=== PATIENT | male | born 1985 | race African-American/Black ===

== ENCOUNTER 2024-01-23 12:30 | Emergency (ER) | payer SELFPAY ==
[2024-01-23 12:36] VITALS: BP 131/75; PULSE 88; RESP 14; TEMP 36.7; O2SAT 100
[2024-01-23 13:21] LABS: Strep Group A RT-PCR NOT DETECTED (Negative)
[2024-01-23 13:32] LABS: Influenza A QL RT-PCR Positive (Negative); Influenza B QL RT-PCR Negative (Negative); RSV RNA, RT-PCR Negative (Negative); SARS-CoV-2 RNA PCR Negative (Negative)
--- NOTE | 2024-01-23 13:42 | ED.URI ---
HPI - URI/Sore Throat General Chief Complaint: Upper Respiratory Infection Stated Complaint: chills, sore throat Time Seen by Provider: 01/23/24 12:59 History of Present Illness HPI Narrative: 38-year-old male presents to the emergency department for body aches, sore throat, rhinorrhea, cough, nausea that started today. Patient states he slept in a hotel last night and is concerned he may been exposed to something. Denies known fever. Related Data Allergies Allergy/AdvReac Type Severity Reaction Status Date / Time tramadol Allergy Rash Verified 01/23/24 12:38 Review of Systems Review of Systems: CONSTITUTIONAL: Denies fever, chills, or sweats. EYES: Denies visual changes, redness, or discharge. ENT: See HPI CARDIOVASCULAR: Denies chest pain, palpitations, or edema. RESPIRATORY: See HPI GASTROINTESTINAL: Denies abdominal pain, nausea, vomiting, or diarrhea. GENITOURINARY: Denies dysuria or hematuria. SKIN: Denies rash or itching. MUSCULOSKELETAL: Denies back pain, joint pain, or myalgia. NEUROLOGIC: Denies headache, numbness, or weakness. PSYCHIATRIC: Denies anxiety or depression. Exam Narrative: GENERAL: Well-appearing, well-nourished, and in no acute distress. HEAD: Normocephalic, atraumatic. EYES: PERRLA and EOMI. ENT: Nares clear, no rhinorrhea or epistaxis. Mucous membranes moist. Posterior pharynx without erythema or edema. Uvula midline. No tonsillar hypertrophy or exudates. NECK: Supple. CHEST: Clear to auscultation. No respiratory distress. HEART: Regular rate and rhythm. No murmur heard. Normal peripheral pulses. ABDOMEN: Soft, nontender, nondistended, normal active bowel sounds. EXTREMITIES: Normal range of motion. No edema. SKIN: Warm, dry, no rash. NEURO: No focal deficits. Alert and oriented x3 Course Vital Signs Vital signs: Vital Signs Temperature 98.1 F 01/23/24 12:36 Pulse Rate 88 01/23/24 12:36 Respiratory Rate 14 01/23/24 12:36 Blood Pressure 131/75 01/23/24 12:36 Pulse Oximetry 100 01/23/24 12:36 Oxygen Delivery Room Air 01/23/24 12:36 Temperature 98.1 F 01/23/24 12:36 Pulse Rate 88 01/23/24 12:36 Respiratory Rate 14 01/23/24 12:36 Blood Pressure 131/75 01/23/24 12:36 Pulse Oximetry 100 01/23/24 12:36 Oxygen Delivery Room Air 01/23/24 12:45 MDM - URI/Sore Throat MDM Narrative Medical decision making narrative: 38-year-old male presents to the emergency department for URI symptoms that started this morning. See HPI for further history. Vitals stable. Exam is significant for the above. Strep, COVID and RSV are negative. Flu test is positive. This was relayed to the patient he will be sent home with Tamiflu and Zofran. Advised follow-up with PCP, referral provided. ED return precautions discussed. He is agreeable to plan verbalized understanding. Discharged in stable condition. Lab Data Labs: Lab Results 01/23/24 Range/Units 12:49 Influenza A (RT-PCR) Positive A (Negative) Influenza B (RT-PCR) Negative (Negative) RSV (RT-PCR) Negative (Negative) SARS-CoV-2 RNA (RT-PCR) Negative (Negative) Group A Strep (PCR) Not detected (Negative) Discharge Plan Discharge Clinical Impression: Influenza Patient Disposition: Home, Self-Care Condition: Stable Instructions: Antibiotic Form, Influenza (ED) Additional Instructions: You tested positive for flu A today. Please drink plenty of fluids and take Tylenol ibuprofen as needed for pain and body aches. Return to the emergency department if you develop worsening symptoms, inability to tolerate food or fluids, or other concerning symptoms. Prescriptions: New oseltamivir [Tamiflu] 75 mg capsule 75 mg PO Q12H 5 Days Qty: 10 0RF ondansetron 4 mg tablet,disintegrating 4 mg PO Q8H Qty: 14 0RF Follow-up/Referrals: PHYSICIAN,ELECTRICAL [employer]INUITY TESTER [Primary Care Provider] - Richie Zambrano MD [Physician] - 1 Week Stand Alone Forms: Work/[facility]cho
[2024-01-23] MEDS: IBUPROFEN 400 MG TABLET 800 MG PO (13:54)
== END 2024-01-23 13:59 | disposition home or self-care (01) ==
PROVIDERS: Emergency Medicine; Emergency Provider Physician Assistant
DX: J10.1 Influenza due to other identified influenza virus with other respiratory manifestations (principal); Z20.822 Contact with and (suspected) exposure to COVID-19
CPT/HCPCS: 87637; 87651; 99283; A9270